=== PATIENT | female | born 1990 | race Two or more races ===

== ENCOUNTER 2021-02-10 19:52 | Emergency (ER) | payer SELFPAY ==
[~2021-02-10] VITALS: Ht 160 cm; Wt 69.0 kg
[2021-02-10] MEDS ORDERED: ONDANSETRON HCL 4MG/2ML INJ IV ONE (21:00)
[2021-02-10 23:29] VITALS: BP 147/99
== END 2021-02-10 23:41 | disposition home or self-care (01) ==
LOC: ER 19:52
DX: F10.129 Alcohol abuse with intoxication, unspecified (principal); Y90.9 Presence of alcohol in blood, level not specified
CPT/HCPCS: 99284